=== PATIENT | female | born 1970 | race American Indian/Alaskan Native ===

== ENCOUNTER 2018-06-11 10:38 | Emergency (ER) | payer MEDICAID ==
[2018-06-11 10:49] VITALS: BP 151/97; PULSE 97; RESP 20; TEMP 98.6; O2SAT 100
[2018-06-11 10:50] VITALS: BMI 21.9
--- NOTE | 2018-06-11 13:05 | ED PDOC ---
Lower Extremity Pain/Injury Time Seen by Provider: 06/11/18 11:07 Chief Complaint (Nursing): Lower Extremity Problem/Injury Chief Complaint (Provider): Lower Extremity Problem/Injury History Per: Patient History/Exam Limitations: no limitations Onset/Duration Of Symptoms: Days (x7) Additional Complaint(s): 48 y/o female with history of HIV presents to ER for evaluation of mild persistent left foot and leg pain ongoing for 1 week associated with subjective swelling to lower thigh and knee. Patient reports she dropped a vacuum apron cleaner on her left foot 2 weeks ago and had an outpatient x-ray which was subsequently negative. She denies any history of blood clots, prior swelling to leg, chest pain, shortness of breath or ankle pain. PMD: none provided Past Medical History Reviewed: Historical Data, Nursing Documentation, Vital Signs Vital Signs: Last Vital Signs Temp 98.6 F 06/11/18 10:49 Pulse 97 H 06/11/18 10:49 Resp 20 06/11/18 10:49 BP 151/97 H 06/11/18 10:49 Pulse Ox 100 06/11/18 10:49 - Medical History PMH: Arthritis, HIV, HTN Denies: Anxiety, Bipolar Disorder, Depression, Chronic Kidney Disease - Surgical History Surgical History: No Surg Hx - Family History Family History: States: Unknown Family Hx - Social History Current smoker - smoking cessation education provided: Yes (Light smoker) Alcohol: None Drugs: Denies - Home Medications Home Medications: Ambulatory Orders Medication Instructions Recorded RX: Ibuprofen [Motrin Tab] 600 mg PO Q6 PRN #15 tab 06/11/18 - Allergies Allergies/Adverse Reactions: Allergies Allergy/AdvReac Type Severity Reaction Status Date / Time codeine Allergy RASH Verified 06/11/18 11:16 Sulfa (Sulfonamide Allergy RASH Verified 06/11/18 11:16 Antibiotics) Review of Systems ROS Statement: Except As Marked, All Systems Reviewed And Found Negative Musculoskeletal: Positive for: Leg Pain (left), Foot Pain (Left) Physical Exam - Reviewed Nursing Documentation Reviewed: Yes Vital Signs Reviewed: Yes - Physical Exam Appears: Positive for: Non-toxic, No Acute Distress Head Exam: Positive for: ATRAUMATIC, NORMOCEPHALIC Extremity: Positive for: Normal ROM, Tenderness (mild to thigh and lateral left foot), Other (Small healing abrasion to left christine. No erythema of left thigh). Negative for: Calf Tenderness (left sided.), Swelling (of left leg or foot or thigh) Neurologic/Psych: Positive for: Alert, Oriented (x3) - ECG O2 Sat by Pulse Oximetry: 100 (RA) Pulse Ox Interpretation: Normal Medical Decision Making Medical Decision Making: Time: 1125 Initial Plan: --Knee x-ray --Tylenol 325 mg PO --Femur x-ray --Duplex left lower extremity vein US 1310 X-rays reviewed and read by me and found negative. US prelim neg for DVT DC from ED followup PMD for further testing Scribe Attestation: Documented by Marsha Amaya, acting as a scribe for Florentino Maynard MD. Provider Scribe Attestation: All medical record entries made by the Scribe were at my direction and personally dictated by me. I have reviewed the chart and agree that the record accurately reflects my personal performance of the history, physical exam, medical decision making, and the department course for this patient. I have also personally directed, reviewed, and agree with the discharge instructions and disposition. Disposition - Clinical Impression Clinical Impression: Leg pain - Patient ED Disposition Is Patient to be Admitted: No Counseled Patient/Family Regarding: Studies Performed, Diagnosis, Need For Followup - Disposition Referrals: [facility] [Outside] Pete Allan MD [Family Provider] - Disposition: Routine/Home Disposition Time: 13:45 Condition: STABLE Additional Instructions: Return to ER for any worse or new symptoms. Followup PMD for further testing of cause of leg pain. See electrician's assistant for foot pain./ Prescriptions: RX: Ibuprofen [Motrin Tab] 600 mg PO Q6 PRN #15 tab PRN Reason: Pain, Moderate (4-7) Instructions: Muscle and Bone Pain (DC), Toe Injury (DC) Forms: [facility] [facility] ([place]ese)
--- NOTE | 2018-06-11 15:01 | US ---
Date of service: 06/11/2018 HISTORY: Left leg pain and swelling. PRIORS: None. FINDINGS: 2-D, color and duplex Doppler analysis of the lower extremity venous circulation using routine protocol from the femoral veins through the popliteal veins. Venous compressibility: Normal. Flow and augmentation patterns: Normal. Visualized veins upper third of calf: Normal. [place] cyst: None. IMPRESSION: No sonographic or Doppler evidence for DVT in left lower extremity.
--- NOTE | 2018-06-11 16:21 | RAD ---
Date of service: 06/11/2018 PROCEDURE: Left femur HISTORY: L leg pain/ swelling COMPARISON: None TECHNIQUE: Standard protocol for this study/examination. FINDINGS: No significant/acute osseous, articular or soft tissue abnormalities. IMPRESSION: No significant or acute findings to account for/ related to the clinical presentation.
--- NOTE | 2018-06-11 16:21 | RAD ---
Date of service: 06/11/2018 PROCEDURE: Left Knee Radiographs. HISTORY: Pain. COMPARISON: None. FINDINGS: BONES: Normal. No fracture. JOINTS: Normal. No osteoarthritis. JOINT EFFUSION: None. OTHER FINDINGS: None. IMPRESSION: Normal radiographs of the left knee.
== END 2018-06-11 14:30 | disposition home or self-care (01) ==
LOC: H.ER 10:38
DX: M79.605 Pain in left leg (principal)